=== PATIENT | female | born 1975 | race Caucasian/White ===

== ENCOUNTER 2018-11-14 14:54 | Inpatient (IN) | payer OTHER ==
[~2018-11-14] VITALS: Ht 160 cm; Wt 100.7 kg
== END 2018-11-21 11:20 | disposition home or self-care (01) | DRG 833 ==
LOC: OB/GYN 14:54
PROVIDERS: ADMIT Obstetrics & Gynecology Maternal & Fetal Medicine
PROC: 4A1HXCZ Monitoring of Products of Conception, Cardiac Rate, External Approach (ICD-10-PCS; principal; 2018-11-14)
DX: O34.32 Maternal care for cervical incompetence, second trimester (principal); Z34.82 Encounter for supervision of other normal pregnancy, second trimester

== ENCOUNTER 2018-11-27 12:38 | Outpatient (CLI) | payer OTHER | END 2018-11-27 13:05 | disposition home or self-care (01) | LOC: NST 12:38 | DX: Z34.82 Encounter for supervision of other normal pregnancy, second trimester (principal) ==

== ENCOUNTER 2018-12-11 08:18 | Outpatient (CLI) | payer OTHER | END 2018-12-11 09:13 | disposition home or self-care (01) | LOC: NST 08:18 | DX: Z34.83 Encounter for supervision of other normal pregnancy, third trimester (principal) ==

== ENCOUNTER 2018-12-25 09:44 | Outpatient (CLI) | payer OTHER | END 2018-12-25 11:15 | disposition home or self-care (01) | LOC: NST 09:44 | DX: Z34.83 Encounter for supervision of other normal pregnancy, third trimester (principal) ==

== ENCOUNTER 2019-01-01 13:06 | Outpatient (CLI) | payer OTHER | END 2019-01-01 13:42 | disposition home or self-care (01) | LOC: NST 13:06 | DX: Z34.83 Encounter for supervision of other normal pregnancy, third trimester (principal) ==

== ENCOUNTER 2019-01-15 08:15 | Outpatient (CLI) | payer OTHER | END 2019-01-15 09:12 | disposition home or self-care (01) | LOC: NST 08:15 | DX: Z34.83 Encounter for supervision of other normal pregnancy, third trimester (principal) ==

== ENCOUNTER 2019-01-29 08:02 | Outpatient (CLI) | payer OTHER | END 2019-01-29 09:58 | disposition home or self-care (01) | LOC: NST 08:02 | DX: Z34.83 Encounter for supervision of other normal pregnancy, third trimester (principal) ==

== ENCOUNTER 2019-02-05 08:40 | Outpatient (CLI) | payer OTHER | END 2019-02-05 10:10 | disposition home or self-care (01) | LOC: NST 08:40 | DX: Z34.83 Encounter for supervision of other normal pregnancy, third trimester (principal) ==

== ENCOUNTER 2019-02-12 07:57 | Outpatient (CLI) | payer OTHER | END 2019-02-12 08:54 | disposition home or self-care (01) | LOC: NST 07:57 | DX: Z34.83 Encounter for supervision of other normal pregnancy, third trimester (principal) ==

== ENCOUNTER 2019-02-19 08:17 | Outpatient (CLI) | payer OTHER | END 2019-02-19 08:59 | disposition home or self-care (01) | LOC: NST 08:17 | DX: Z34.83 Encounter for supervision of other normal pregnancy, third trimester (principal) ==

== ENCOUNTER 2019-02-24 07:22 | Outpatient (CLI) | payer OTHER | END 2019-02-24 08:00 | disposition home or self-care (01) | LOC: NST 07:22 | DX: Z34.83 Encounter for supervision of other normal pregnancy, third trimester (principal) ==